=== PATIENT | male | born 1935 | race Native Hawaiian/Other Pacific Islander ===

== ENCOUNTER 2018-07-19 14:00 | Emergency (ER) | payer OTHER, MEDICARE ==
[~2018-07-19] VITALS: Ht 172.7 cm; Wt 78.9 kg
[2018-07-19 15:02] LABS: PLATELET COUNT 345 K/uL (142-355)
[2018-07-19 15:10] LABS: POTASSIUM 3.9 mmol/L (3.6-5.2)
[2018-07-19 16:50] VITALS: BP 150/80; TEMP 98.5
== END 2018-07-19 16:59 | disposition home or self-care (01) ==
LOC: ED 14:00
PROVIDERS: Family Medicine
DX: N20.9 Urinary calculus, unspecified (principal); R31.9 Hematuria, unspecified
CPT/HCPCS: 80053; 81000; 85027; 96365; 96374; 96375; 99284; J1885; J2405